=== PATIENT | female | born 2000 | race Hispanic/Latino ===

== ENCOUNTER 2023-01-08 15:02 | Emergency (ER) | payer OTHER ==
[~2023-01-08] VITALS: Ht 165.1 cm; Wt 135.6 kg
[2023-01-08] MEDS ORDERED: IBUPROFEN 600 MG TAB PO STA (15:10)
[2023-01-08 15:30] VITALS: O2SAT 100
[2023-01-08] MEDS ORDERED: ULTRAM 50MG50 MG PO (15:43)
[2023-01-08] MEDS ORDERED: IBUPROFEN 600 MG TAB ONE (16:34)
== END 2023-01-08 16:35 | disposition home or self-care (01) ==
LOC: ER 15:16
DX: M25.571 Pain in right ankle and joints of right foot (principal); X50.1XXA Overexertion from prolonged static or awkward postures, initial encounter; Y93.01 Activity, walking, marching and hiking; Y92.89 Other specified places as the place of occurrence of the external cause
CPT/HCPCS: 99283